=== PATIENT | female | born 1990 | race Caucasian/White ===

== ENCOUNTER → 2017-02-01 21:35 | Emergency (ER) | payer SELFPAY ==
[~2017-02-01 21:35] MED LIST: Penicillin VK TAB* 250 MG ONE
== END | disposition home or self-care (01) ==
LOC: UCCORT 21:35
DX: K04.7 Periapical abscess without sinus (principal); F17.210 Nicotine dependence, cigarettes, uncomplicated
CPT/HCPCS: A9270-GY